=== PATIENT | female | born 1950 | race Caucasian/White ===

== ENCOUNTER → 2017-01-25 | Outpatient (CLI) | payer BC ==
[~2017-01-25] MED LIST: REGADENOSON 0.4 MG/5 ML SYRINGE ONE
== END | disposition home or self-care (01) ==
LOC: CFH 12:42
PROVIDERS: ATTEND Internal Medicine
DX: I10 Essential (primary) hypertension (principal); I45.10 Unspecified right bundle-branch block
CPT/HCPCS: 78452; 93017; A9502; J2785

== ENCOUNTER → 2017-08-02 | Outpatient (CLI) | payer BC | END | disposition home or self-care (01) | LOC: CFH 10:47 | PROVIDERS: ATTEND Internal Medicine | DX: M95.2 Other acquired deformity of head (principal); M48.02 Spinal stenosis, cervical region; W00.0XXA Fall on same level due to ice and snow, initial encounter | CPT/HCPCS: 70450 ==

== ENCOUNTER 2019-03-05 09:26 | Day surgery (SDC) | payer MEDICARE, BC ==
[2019-03-02 09:36] LABS: BASOPHILS # (AUTO) 0.02 x10^3/uL (0-0.1); BASOPHILS % (AUTO) 0 % (0-1); EOSINOPHILS # (AUTO) 0.39 x10^3/uL (0-0.4); EOSINOPHILS % (AUTO) 5 % (1-7); LYMPHOCYTES # (AUTO) 1.68 x10^3/uL (1-3.4); LYMPHOCYTES % (AUTO) 20 % (22-44); MD NO; MEAN CORPUSCULAR HEMOGLOBIN 28.2 pg (27.0-34.8); MEAN CORPUSCULAR HGB CONC 32.2 g/dL (32.4-35.8); MEAN CORPUSCULAR VOLUME 87.4 fL (80-100); MEAN PLATELET VOLUME 8.9 fL (7.4-10.4); MONOCYTES # (AUTO) 0.54 x10^3/uL (0.2-0.8); MONOCYTES % (AUTO) 7 % (2-9); NEUTROPHILS # (AUTO) 5.67 x10^3/uL (1.8-6.8); NEUTROPHILS % (AUTO) 68 % (42-75); PLATELET COUNT 313 x10^3/uL (130-400); RED BLOOD COUNT 3.87 x10^6/uL (3.82-5.3); RED CELL DISTRIBUTION WIDTH 16.8 % (9.6-15.2)
[2019-03-02 09:46] LABS: CHLORIDE 104 mmol/L (98-107)
[2019-03-02 09:48] LABS: INTERNATIONAL NORMALIZED RATIO 1.02 (0.93-1.1); PROTHROMBIN TIME 10.7 Seconds (9.6-11.5)
[2019-03-02 09:52] LABS: ANION GAP 9 mmol/L (5-15); CALCIUM 8.9 mg/dL (8.5-10.1); CREATININE 1.12 mg/dL (0.55-1.02)
[2019-03-02 09:53] LABS: ALANINE AMINOTRANSFERASE 13 U/L (12-78); ALBUMIN 3.2 g/dL (3.4-5.0); ALKALINE PHOSPHATASE 95 U/L (45-117); BILIRUBIN,TOTAL 0.8 mg/dL (0.2-1.0); TOTAL PROTEIN 7.5 g/dL (6.4-8.2)
[~2019-03-05] VITALS: Ht 158.8 cm; Wt 98.0 kg
[~2019-03-05 09:26] MED LIST changes: +ATOR-2 PO; +ATOR20TA37 PO; +CALC1CAP8 PO; +CHLO25TA PO; +CHOL200074 PO; +CYAN250013 PO; +DEPRESSION; +DULO30CA2 PO; +HIGH BLOOD PRESSURE; +HYDR25TA6 PO; +LISI-170 PO; +LISI-420 PO; +LISI30TA4 PO; +LISI40TA PO; +METO-93 PO; +MULT1TAB60 PO; +ONDA4TAB7 PO; +OXYC-306 PO; +POTA20PA31 PO; -REGADENOSON 0.4 MG/5 ML SYRINGE ONE
[2019-03-05] MEDS ORDERED: EPINEPHRINE 1 MG/ML, 1ML ONE (10:01)
[2019-03-05] MEDS ORDERED: HEPARIN 5,000 UNITS/ML, 1ML ONE ×2 (10:01→14:04)
[2019-03-05] MEDS ORDERED: BUPIVACAINE/PF 0.25% ONE (10:01)
[2019-03-05] MEDS ORDERED: LACTATED RINGERS 1,000 ML IV SCH (10:09)
[2019-03-05 10:10] VITALS: BP 178/113
[2019-03-05] MEDS ORDERED: FENTANYL PF 100 MCG/2ML ONE (10:22)
[2019-03-05] MEDS ORDERED: MIDAZOLAM 1 MG/ML, 2ML ONE (10:22)
[2019-03-05] MEDS ORDERED: PROPOFOL 10 MG/ML, 20ML ONE (10:27)
[2019-03-05] MEDS ORDERED: hydrALAzine 20 MG/ML, 1ML ONE ×3 (10:27→12:10)
[2019-03-05] MEDS ORDERED: ONDANSETRON 2MG/ML, 2ML ONE ×2 (10:35→11:19)
[2019-03-05] MEDS ORDERED: DEXAMETHASONE 4 MG/ML, 1ML ONE ×2 (10:35→10:49)
[2019-03-05] MEDS ORDERED: EPHEDRINE 50 MG/ML, 1ML ONE (10:51)
[2019-03-05] MEDS ORDERED: VISIPAQUE 270 MG/ML, 50ML BOTTLE ONE (11:32)
[2019-03-05] MEDS ORDERED: PROMETHAZINE 25 MG/ML, 1ML IV PRN (12:00)
[2019-03-05] MEDS ORDERED: EPHEDRINE 50 MG/ML, 1ML IVPush PRN (12:00)
[2019-03-05] MEDS ORDERED: HYDROmorphone 2 MG/ML, 1ML IVPush PRN (12:00)
[2019-03-05] MEDS ORDERED: ALBUTEROL SULFATE 2.5 MG/3 ML NPPB PRN (12:00)
[2019-03-05] MEDS ORDERED: MIDAZOLAM 1 MG/ML, 2ML IV PRN (12:00)
[2019-03-05] MEDS ORDERED: ONDANSETRON ODT 8 MG PO PRN (12:00)
[2019-03-05] MEDS ORDERED: OXYcodone 5 MG/5 ML ORAL.SOL UDC PO PRN (12:00)
[2019-03-05] MEDS ORDERED: ACETAMINOPHEN 325 MG TABLET PO PRN (12:00)
[2019-03-05] MEDS ORDERED: DIAZEPAM 5 MG/ML, 2ML IVPush PRN (12:00)
[2019-03-05] MEDS ORDERED: hydrALAzine 20 MG/ML, 1ML IV PRN (12:00)
[2019-03-05] MEDS ORDERED: PROMETHAZINE 12.5 MG SUPP PR PRN (12:00)
[2019-03-05] MEDS ORDERED: FENTANYL PF 100 MCG/2ML IV PRN (12:00)
[2019-03-05] MEDS ORDERED: HALOPERIDOL 5 MG/ML IV PRN (12:00)
[2019-03-05] MEDS ORDERED: ONDANSETRON 2MG/ML, 2ML IV PRN (12:00)
[2019-03-05] MEDS ORDERED: LABETALOL 5MG/ML, 20ML IV PRN (12:00)
[2019-03-05] MEDS ORDERED: MEPERIDINE/PF 25MG/ML,1ML IVPush PRN (12:00)
== END 2019-03-05 13:15 | disposition home or self-care (01) ==
LOC: OUT 09:26
PROVIDERS: ATTEND Specialist
DX: C56.9 Malignant neoplasm of unspecified ovary (principal); I10 Essential (primary) hypertension; E78.5 Hyperlipidemia, unspecified; E66.9 Obesity, unspecified; Z68.41 Body mass index [BMI] 40.0-44.9, adult; Z79.01 Long term (current) use of anticoagulants; Z79.899 Other long term (current) drug therapy; Z88.0 Allergy status to penicillin; Z90.49 Acquired absence of other specified parts of digestive tract; Z90.710 Acquired absence of both cervix and uterus; Z90.722 Acquired absence of ovaries, bilateral; Z90.79 Acquired absence of other genital organ(s); Z98.1 Arthrodesis status; Z98.890 Other specified postprocedural states
CPT/HCPCS: 36415; 36561; 77001; 80053; 85025; 85610; 85730; 86304; 93005; C1788; J0171; J0360; J1100; J1644; J2250; J2405; J2704; J3010; J3490; J7120; Q9966

== ENCOUNTER → 2019-03-16 | Outpatient (CLI) | payer MEDICARE, BC ==
[~2019-03-16] MED LIST changes: +DOCU-131 PO; +MAGN400O7 PO; +OMNIPAQUE 350 MG/ML, 100ML BOTTLE ONE; +POTA20TA14 PO
== END | disposition home or self-care (01) ==
LOC: CFH 13:12
PROVIDERS: ATTEND Specialist
DX: N13.30 Unspecified hydronephrosis (principal); I70.8 Atherosclerosis of other arteries; M47.897 Other spondylosis, lumbosacral region; I71.2 Thoracic aortic aneurysm, without rupture; M47.894 Other spondylosis, thoracic region; D25.0 Submucous leiomyoma of uterus; N83.291 Other ovarian cyst, right side; Z79.899 Other long term (current) drug therapy; I10 Essential (primary) hypertension; Z88.0 Allergy status to penicillin; Z91.030 Bee allergy status; Z90.49 Acquired absence of other specified parts of digestive tract; Z87.891 Personal history of nicotine dependence; Z90.710 Acquired absence of both cervix and uterus
CPT/HCPCS: 71260; 74177; Q9967

== ENCOUNTER → 2019-04-06 | Outpatient (CLI) | payer MEDICARE, BC | END | disposition home or self-care (01) | LOC: RAD 13:05 | PROVIDERS: ATTEND Specialist | DX: C56.9 Malignant neoplasm of unspecified ovary (principal); R19.09 Other intra-abdominal and pelvic swelling, mass and lump; N13.39 Other hydronephrosis; I70.0 Atherosclerosis of aorta; I51.7 Cardiomegaly | CPT/HCPCS: 71275; 76770; Q9967 ==

== ENCOUNTER → 2019-04-13 | Outpatient (CLI) | payer MEDICARE, BC ==
[~2019-04-13] MED LIST changes: -OMNIPAQUE 350 MG/ML, 100ML BOTTLE ONE
== END | disposition home or self-care (01) ==
LOC: CFH 13:21
PROVIDERS: ATTEND Internal Medicine
DX: Z12.31 Encounter for screening mammogram for malignant neoplasm of breast (principal)
CPT/HCPCS: 77067

== ENCOUNTER 2019-05-18 12:16 | Outpatient (CLI) | payer MEDICARE, BC ==
[~2019-05-18 12:16] MED LIST changes: +MAGN400T36 PO
== END 2019-05-18 23:59 | disposition home or self-care (01) ==
LOC: CFH 12:16
PROVIDERS: ATTEND Physician Assistant
DX: R60.0 Localized edema (principal)

== ENCOUNTER 2019-05-30 12:10 | Emergency (ER) | payer MEDICARE, BC ==
[~2019-05-30] VITALS: Ht 157.5 cm; Wt 94.7 kg
--- NOTE | 2019-05-30 13:00 | NUR ---
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
[2019-05-30] MEDS ORDERED: LISI2.5T PO (13:42)
[2019-05-30] MEDS ORDERED: OXYC-307 PO (13:42)
[2019-05-30] MEDS ORDERED: OXYC-295 PO (13:42)
[2019-05-30] MEDS ORDERED: MAGN250T8 PO (13:42)
[2019-05-30] MEDS ORDERED: ONDA4TAB7 PO (13:42)
[2019-05-30] MEDS ORDERED: MAGNESIUM SULFATE PMX 2GM/50ML 50 ML ONE (13:44)
[2019-05-30] MEDS ORDERED: POTASSIUM CHLORIDE 40 MEQ in SODIUM CHLORIDE 0.9% 500 ML IV ONE (14:00)
[2019-05-30] MEDS ORDERED: MAGNESIUM SULFATE PMX 2GM/50ML 50 ML IV ONE (14:00)
--- NOTE | 2019-05-30 15:00 | NUR ---
MAG AND POTASIUM INFUSING NOTED ON JUN. PT RESTING WITH EYES CLOSED. AT BEDSIDE
--- NOTE | 2019-05-30 16:00 | NUR ---
UOB TO BATHROOM AND THEN BACK ON POTASSIUM NOTED ON JUN.
[2019-05-30 17:23] LABS: MICROSCOPIC AUTO
[2019-05-30 17:25] LABS: CULTURE INDICATED? YES
[2019-05-30] MEDS ORDERED: CEFDINIR 300 MG CAPSULE ONE (17:33)
--- NOTE | 2019-05-30 17:39 | NUR ---
AWAITING COMPLETION OF IV POTASSIUM. GIVEN ANTIBIOTIC NOTED ON MAR
[2019-05-30] MEDS ORDERED: CEFDINIR 300 MG CAPSULE PO ONE (18:00)
[2019-05-30 18:07] VITALS: BP 173/95
== END 2019-05-30 18:33 | disposition home or self-care (01) ==
LOC: ED 17:09
DX: N30.00 Acute cystitis without hematuria (principal); E87.6 Hypokalemia; I10 Essential (primary) hypertension; E78.5 Hyperlipidemia, unspecified; Z90.49 Acquired absence of other specified parts of digestive tract; Z90.710 Acquired absence of both cervix and uterus
CPT/HCPCS: 81001; 87077; 87086; 87186; 93005; 96365; 96366; 96368; 99284; J3475; J3480; J7040

== ENCOUNTER 2019-06-15 06:11 | Day surgery (SDC) | payer MEDICARE, BC ==
[~2019-06-15] VITALS: Ht 157.5 cm; Wt 95.3 kg
[~2019-06-15 06:11] MED LIST changes: +LISI2.5T PO; +MAGN250T8 PO; +OXYC-295 PO; +OXYC-307 PO
[2019-06-15 06:47] VITALS: BP 149/100
[2019-06-15] MEDS ORDERED: FENTANYL PF 100 MCG/2ML ONE (08:16)
[2019-06-15] MEDS ORDERED: MIDAZOLAM 1 MG/ML, 5ML ONE (08:16)
[2019-06-15] MEDS ORDERED: FLUMAZENIL 0.1 MG/1 ML, 5ML ONE (08:17)
[2019-06-15] MEDS ORDERED: NALOXONE 1 MG/ML, 2ML ONE (08:17)
[2019-06-15] MEDS ORDERED: LIDOCAINE 1%, 10ML ONE (08:18)
== END 2019-06-15 10:45 | disposition home or self-care (01) ==
LOC: RAD 06:11
PROVIDERS: ATTEND Physician Assistant
DX: I89.8 Other specified noninfective disorders of lymphatic vessels and lymph nodes (principal); C56.9 Malignant neoplasm of unspecified ovary; I10 Essential (primary) hypertension; F17.210 Nicotine dependence, cigarettes, uncomplicated; Z79.899 Other long term (current) drug therapy; Z88.0 Allergy status to penicillin; Z90.710 Acquired absence of both cervix and uterus; Z90.79 Acquired absence of other genital organ(s); Z90.722 Acquired absence of ovaries, bilateral; Z90.49 Acquired absence of other specified parts of digestive tract
CPT/HCPCS: 10030; 99156; 99157; C1729; C1769; C1894; J2250; J3010; 75989; J2310

== ENCOUNTER 2019-06-22 13:43 | Outpatient (CLI) | payer MEDICARE, BC | END 2019-06-22 23:59 | disposition home or self-care (01) | LOC: RAD 13:43 | PROVIDERS: ATTEND Nurse Practitioner Acute Care | DX: Z45.2 Encounter for adjustment and management of vascular access device (principal) | CPT/HCPCS: 36598; 76000 ==

== ENCOUNTER → 2019-07-11 | Outpatient (CLI) | payer MEDICARE, BC ==
[~2019-07-11] MED LIST changes: +OMNIPAQUE 350 MG/ML, 100ML BOTTLE ONE
== END | disposition home or self-care (01) ==
LOC: RAD 14:07
PROVIDERS: ATTEND Specialist
DX: C56.9 Malignant neoplasm of unspecified ovary (principal); D25.0 Submucous leiomyoma of uterus; E87.6 Hypokalemia; E83.42 Hypomagnesemia; R19.09 Other intra-abdominal and pelvic swelling, mass and lump; R60.0 Localized edema
CPT/HCPCS: 74177; Q9967

== ENCOUNTER → 2019-07-24 | Outpatient (CLI) | payer MEDICARE, BC ==
[~2019-07-24] MED LIST changes: -OMNIPAQUE 350 MG/ML, 100ML BOTTLE ONE
== END | disposition home or self-care (01) ==
LOC: RAD 12:35
PROVIDERS: ATTEND Obstetrics & Gynecology
DX: N17.9 Acute kidney failure, unspecified (principal); D25.0 Submucous leiomyoma of uterus; C56.9 Malignant neoplasm of unspecified ovary; N83.291 Other ovarian cyst, right side; D64.9 Anemia, unspecified; E87.6 Hypokalemia; E83.42 Hypomagnesemia; N13.30 Unspecified hydronephrosis; R19.09 Other intra-abdominal and pelvic swelling, mass and lump; R60.0 Localized edema
CPT/HCPCS: 76000

== ENCOUNTER 2019-08-24 13:05 | Outpatient (CLI) | payer MEDICARE, BC ==
[2019-08-24] MEDS ORDERED: OMNIPAQUE 350 MG/ML, 100ML BOTTLE ONE (13:52)
== END 2019-08-24 23:59 | disposition home or self-care (01) ==
LOC: CFH 13:05
PROVIDERS: ATTEND Nurse Practitioner Acute Care
DX: Z51.11 Encounter for antineoplastic chemotherapy (principal); C56.9 Malignant neoplasm of unspecified ovary; I89.8 Other specified noninfective disorders of lymphatic vessels and lymph nodes; D25.0 Submucous leiomyoma of uterus; N83.291 Other ovarian cyst, right side; D64.9 Anemia, unspecified; N17.9 Acute kidney failure, unspecified; N13.30 Unspecified hydronephrosis; G62.0 Drug-induced polyneuropathy; E87.6 Hypokalemia; E83.42 Hypomagnesemia; R60.0 Localized edema; R19.09 Other intra-abdominal and pelvic swelling, mass and lump
CPT/HCPCS: 71260; 74177; Q9967